=== PATIENT | male | born 1990 | race Two or more races ===

== ENCOUNTER 2017-11-16 21:47 | Emergency (ER) | payer OTHER ==
[~2017-11-16] VITALS: Ht 180.3 cm; Wt 128.9 kg
[2017-11-16] MEDS ORDERED: ASPIRIN 81 MG TABLET CHEW ONE (22:29)
[2017-11-16] MEDS ORDERED: ASPIRIN 81 MG TABLET CHEW PO ONE (22:30)
[2017-11-16 22:38] LABS: BASOPHILS # (AUTO) 0.04 x10^3/uL (0-0.1); BASOPHILS % (AUTO) 1 % (0-1); EOSINOPHILS # (AUTO) 0.35 x10^3/uL (0-0.4); EOSINOPHILS % (AUTO) 5 % (1-7); LYMPHOCYTES # (AUTO) 2.91 x10^3/uL (1-3.4); LYMPHOCYTES % (AUTO) 37 % (22-44); MD NO; MEAN CORPUSCULAR HGB CONC 34.6 g/dL (33.2-36.2); MEAN CORPUSCULAR VOLUME 92.4 fL (81-97); MEAN PLATELET VOLUME 8.5 fL (7.4-10.4); MONOCYTES # (AUTO) 0.55 x10^3/uL (0.2-0.8); MONOCYTES % (AUTO) 7 % (2-9); NEUTROPHILS # (AUTO) 4.01 x10^3/uL (1.8-6.8); NEUTROPHILS % (AUTO) 51 % (42-75); PLATELET COUNT 223 x10^3/uL (130-400); RED BLOOD COUNT 5.06 x10^6/uL (4.38-5.82); RED CELL DISTRIBUTION WIDTH 13.9 % (9.4-14.8)
[2017-11-16 22:51] LABS: ALANINE AMINOTRANSFERASE 138 U/L (12-78); ALBUMIN 4.1 g/dL (3.4-5.0); CALCIUM 8.5 mg/dL (8.5-10.1); CHLORIDE 104 mmol/L (98-107); CREATININE 1.18 mg/dL (0.7-1.3)
[2017-11-16 22:55] LABS: ALKALINE PHOSPHATASE 83 U/L (45-117); BILIRUBIN,TOTAL 1.1 mg/dL (0.2-1.0); TOTAL PROTEIN 7.6 g/dL (6.4-8.2); TROPONIN I < 0.015 ng/mL (0.000-0.045)
[2017-11-16 23:15] LABS: ANION GAP 10 mmol/L (5-15)
[2017-11-16 23:45] VITALS: BP 133/81
== END 2017-11-16 23:47 | disposition home or self-care (01) ==
LOC: ED 23:23
DX: R07.89 Other chest pain (principal); F17.200 Nicotine dependence, unspecified, uncomplicated
CPT/HCPCS: 36415; 71045; 80053; 84484; 85025; 93005; 99285

== ENCOUNTER 2018-08-09 02:04 | Emergency (ER) | payer OTHER ==
[~2018-08-09] VITALS: Ht 177.8 cm; Wt 139.1 kg
[2018-08-09 02:17] VITALS: BP 134/87
[2018-08-09] MEDS ORDERED: KETOROLAC 30 MG/1 ML ONE (02:46)
[2018-08-09] MEDS ORDERED: KETOROLAC 30 MG/1 ML IM ONE (03:00)
== END 2018-08-09 03:14 | disposition home or self-care (01) ==
LOC: ED 03:05
DX: M54.2 Cervicalgia (principal)
CPT/HCPCS: 93005; 96372; 99283; J1885

== ENCOUNTER 2018-08-14 06:08 | Emergency (ER) | payer OTHER ==
[2018-08-14] MEDS ORDERED: PROPARACAINE OPHTH 0.5%, 15ML ONE (07:14)
[2018-08-14] MEDS ORDERED: FLUORESCEIN OPHTHALMIC 1 MG STRIP EACHEYE ONE (07:30)
[2018-08-14] MEDS ORDERED: PROPARACAINE OPHTH 0.5%, 15ML EACHEYE ONE (07:30)
[2018-08-14] MEDS ORDERED: FLUORESCEIN/BENOXINATE 5 ML DROPS OP SCH (07:30)
[2018-08-14 08:07] VITALS: BP 140/80
== END 2018-08-14 08:08 | disposition home or self-care (01) ==
LOC: ED 06:32
DX: H18.821 Corneal disorder due to contact lens, right eye (principal)
CPT/HCPCS: 99283

== ENCOUNTER 2019-01-15 22:47 | Emergency (ER) | payer OTHER ==
[~2019-01-15] VITALS: Ht 177.8 cm; Wt 139.9 kg
[2019-01-15 23:21] LABS: MICROSCOPIC NOT IND
[2019-01-15 23:26] LABS: CULTURE INDICATED? NO
[2019-01-16] MEDS ORDERED: SPIR50TA4 PO (00:31)
[2019-01-16] MEDS ORDERED: FINA5TAB4 PO (00:31)
[2019-01-16] MEDS ORDERED: ESTR2TAB PO (00:31)
--- NOTE | 2019-01-16 00:31 | NUR ---
FIRST PT CONTACT, PLEASANT GENTLEMAN TRANSITIONING TO FEMAL WHO DEVELOPED LUQ ABD PAIN YESTERDAY AM, HAS BEEN INTERMITTENT, STATES HAD SIMILAR PAIN IN PAST ON R SIDE THAT PMD BELIEVED MAY BE GALLBLADDER. AWARE TO REMAIN NPO
--- NOTE | 2019-01-16 00:50 | NUR ---
PT AMBULATE TO RADIOLOGY AT THIS TIME
--- NOTE | 2019-01-16 00:54 | NUR ---
RETURN FROM RADIOLOGY. CRISTOPHER PT.
[2019-01-16] MEDS ORDERED: MAALOX/HYOSCYAMINE/LIDOCAINE 45 ML BTL ONE (00:57)
[2019-01-16] MEDS ORDERED: MAALOX/HYOSCYAMINE/LIDOCAINE 45 ML BTL PO ONE (01:00)
[2019-01-16 01:17] LABS: BASOPHILS # (AUTO) 0.03 x10^3/uL (0-0.1); BASOPHILS % (AUTO) 0 % (0-1); EOSINOPHILS # (AUTO) 0.12 x10^3/uL (0-0.4); EOSINOPHILS % (AUTO) 1 % (1-7); LYMPHOCYTES # (AUTO) 3.49 x10^3/uL (1-3.4); LYMPHOCYTES % (AUTO) 29 % (22-44); MD NO; MEAN CORPUSCULAR HEMOGLOBIN 30.8 pg (27.5-34.5); MEAN CORPUSCULAR HGB CONC 33.6 g/dL (33.2-36.2); MEAN CORPUSCULAR VOLUME 91.6 fL (81-97); MEAN PLATELET VOLUME 9.2 fL (7.4-10.4); MONOCYTES # (AUTO) 0.67 x10^3/uL (0.2-0.8); MONOCYTES % (AUTO) 6 % (2-9); NEUTROPHILS # (AUTO) 7.71 x10^3/uL (1.8-6.8); NEUTROPHILS % (AUTO) 64 % (42-75); PLATELET COUNT 234 x10^3/uL (130-400); RED BLOOD COUNT 4.94 x10^6/uL (4.38-5.82); RED CELL DISTRIBUTION WIDTH 13.4 % (9.4-14.8)
[2019-01-16 01:25] VITALS: BP 132/77
--- NOTE | 2019-01-16 01:25 | NUR ---
PT REPORTS NO CHANGE IN PAIN AFTER GI COCKTAIL, RESTING QUIETLY AND APPEARS NAD.
[2019-01-16 01:33] LABS: ALANINE AMINOTRANSFERASE 122 U/L (12-78); ALBUMIN 4.3 g/dL (3.4-5.0); ANION GAP 9 mmol/L (5-15); CALCIUM 8.8 mg/dL (8.5-10.1); CHLORIDE 106 mmol/L (98-107); CREATININE 0.89 mg/dL (0.7-1.3)
[2019-01-16 01:37] LABS: ALKALINE PHOSPHATASE 61 U/L (45-117); BILIRUBIN,TOTAL 1.1 mg/dL (0.2-1.0); TOTAL PROTEIN 7.4 g/dL (6.4-8.2); TROPONIN I < 0.015 ng/mL (0.000-0.045)
--- NOTE | 2019-01-16 01:47 | NUR ---
RECEIVED REPORT FROM TERI EDEN. PT RESTING ON [employer].
== END 2019-01-16 02:23 | disposition home or self-care (01) ==
LOC: ED 01-16 00:42
DX: R10.10 Upper abdominal pain, unspecified (principal); R10.13 Epigastric pain
CPT/HCPCS: 36415; 71046; 74018; 76700; 80053; 81003; 83690; 84484; 85025; 86677; 93005; 99284

== ENCOUNTER 2019-04-15 09:22 | Emergency (ER) | payer OTHER ==
[~2019-04-15] VITALS: Ht 177.8 cm; Wt 140.0 kg
[~2019-04-15 09:22] MED LIST: ESTR2TAB PO; FINA5TAB4 PO; SPIR50TA4 PO
[2019-04-15 09:25] VITALS: BP 136/78
--- NOTE | 2019-04-15 09:38 | NUR ---
PATIENT PRESENTS TO ED TODAY FOR RT LOWER BACK PAIN STARTING LAST NIGHT WHILE MAKING DINNER WITH TINGLING TO RT LOWER EXT, PATIENT WAS AT [facility], DENIES TRAUMA/INJURY. AWAITING MD ORDERS, CALL LIGHT WITHIN REACH
[2019-04-15] MEDS ORDERED: METHOCARBAMOL 750 MG TABLET ONE (09:44)
[2019-04-15] MEDS ORDERED: KETOROLAC 30 MG/1 ML ONE (09:44)
--- NOTE | 2019-04-15 09:47 | NUR ---
UA COLLECTED AND SENT TO LAB.
[2019-04-15] MEDS ORDERED: METHOCARBAMOL 750 MG TABLET PO ONE (10:00)
[2019-04-15] MEDS ORDERED: KETOROLAC 30 MG/1 ML IM ONE (10:00)
[2019-04-15 10:15] LABS: MICROSCOPIC AUTO
[2019-04-15 10:29] LABS: CULTURE INDICATED? NO
--- NOTE | 2019-04-15 10:35 | NUR ---
RESULTS BACK, CHART UP FOR RECHECK.
--- NOTE | 2019-04-15 11:07 | NUR ---
Patient/Caregiver given discharge instructions and they have confirmed that they understand the instructions. Patient ambulatory with steady gait.
== END 2019-04-15 11:09 | disposition home or self-care (01) ==
LOC: ED 11:03
DX: M54.41 Lumbago with sciatica, right side (principal); K21.9 Gastro-esophageal reflux disease without esophagitis
CPT/HCPCS: 81001; 96372; 99283; J1885

== ENCOUNTER 2019-05-16 16:54 | Emergency (ER) | payer OTHER ==
[~2019-05-16] VITALS: Ht 177.8 cm; Wt 145.0 kg
[2019-05-16 16:56] VITALS: BP 133/81
--- NOTE | 2019-05-16 17:49 | NUR ---
REPORTS HX OF GENERALIZED LOWER BACK PAIN X 5 YEARS HAD CHIROPRACTOR ADJUSTMENT TODAY- A FEW HOUR LATER HAD SUDDEN SENSATION LOSS TO BOTH LOWER LEGS - IMPROVED AFTER 30 MINUTES ON ARRIVAL NEURO EXAM UNREMARKABLE
--- NOTE | 2019-05-16 18:21 | NUR ---
AFTER PROVIDER EVAL PATIENT DISCHARGED HOME. CONTINUES TO REPORT RESOLUTION OF SYMPTOMS (NO LEG WEAKNESS) ADVISED TO STOP SMOKING ESPECIALLY WHILE ON HORMONE THERAPY
== END 2019-05-16 18:23 | disposition home or self-care (01) ==
LOC: ED 17:55
DX: R20.0 Anesthesia of skin (principal); Z90.49 Acquired absence of other specified parts of digestive tract; F17.200 Nicotine dependence, unspecified, uncomplicated
CPT/HCPCS: 99283

== ENCOUNTER 2021-03-06 18:35 | Emergency (ER) | payer OTHER ==
[~2021-03-06] VITALS: Ht 177.8 cm; Wt 146.1 kg
--- NOTE | 2021-03-06 18:39 | NUR ---
CALL X 1, PT IN BR.
[2021-03-06 18:40] VITALS: BP 148/99
[2021-03-06] MEDS ORDERED: HYDROcodone/APAP 5/325 TABLET PO ONE (19:00)
--- NOTE | 2021-03-06 19:00 | NUR ---
erp at bedside
[2021-03-06] MEDS ORDERED: HYDROcodone/APAP 5/325 TABLET ONE (19:14)
--- NOTE | 2021-03-06 19:28 | NUR ---
Patient given discharge instructions and they have confirmed that they understand the instructions. Patient ambulatory with steady gait.
== END 2021-03-06 19:29 | disposition home or self-care (01) ==
LOC: ED 19:00
DX: K08.89 Other specified disorders of teeth and supporting structures (principal); K21.9 Gastro-esophageal reflux disease without esophagitis; F17.210 Nicotine dependence, cigarettes, uncomplicated; Z90.89 Acquired absence of other organs
CPT/HCPCS: 99283; 99406

== ENCOUNTER 2021-05-26 03:13 | Emergency (ER) | payer OTHER ==
[~2021-05-26] VITALS: Ht 177.8 cm; Wt 129.4 kg
[2021-05-26 03:15] VITALS: BP 169/99
== END 2021-05-26 04:10 | disposition home or self-care (01) ==
LOC: ED 03:45
DX: L03.115 Cellulitis of right lower limb (principal); R21 Rash and other nonspecific skin eruption; K21.9 Gastro-esophageal reflux disease without esophagitis
CPT/HCPCS: 99283

== ENCOUNTER 2021-06-29 15:13 | Emergency (ER) | payer OTHER ==
[~2021-06-29] VITALS: Ht 177.8 cm; Wt 150.0 kg
[2021-06-29 15:19] VITALS: BP 163/91
[2021-06-29] MEDS ORDERED: EMTR1TAB24 PO (15:39)
[2021-06-29] MEDS ORDERED: CYCL10TA2 PO (15:39)
[2021-06-29] MEDS ORDERED: NAPR-685 PO (15:39)
== END 2021-06-29 17:17 | disposition home or self-care (01) ==
LOC: ED 15:53
DX: M54.31 Sciatica, right side (principal)
CPT/HCPCS: 93971; 99284; J7512